=== PATIENT | male | born 2000 | race Caucasian/White ===

== ENCOUNTER 2024-04-29 13:12 | Outpatient (CLI) | payer OTHER, SELFPAY | END 2024-04-29 13:13 | disposition home or self-care (01) | PROVIDERS: Visit Provider Internal Medicine | DX: I45.10 Unspecified right bundle-branch block (principal) | CPT/HCPCS: 80053; 80061 ==

== ENCOUNTER 2024-05-08 12:29 | Outpatient (CLI) | payer OTHER, SELFPAY | END 2024-05-08 12:30 | disposition home or self-care (01) | LOC: RAD 12:32 | PROVIDERS: Visit Provider Internal Medicine | DX: I45.10 Unspecified right bundle-branch block (principal) | CPT/HCPCS: 93306 ==

== ENCOUNTER 2025-03-04 15:44 | Outpatient (CLI) | payer OTHER, SELFPAY ==
--- NOTE | 2025-03-04 16:00 | US_ITS ---
Patient: ROCÍO BISHOP Facility:?[facility] Patient ID:?[id number] Site Patient ID:?[id number]. Site :?[id number] Study:?US-Testicle Scrotum-03/04/2025 4:45:25 PM Ordering Physician:Byron Jesus Final Report: Indication: Testicular pain. Technique: Ultrasound of the scrotum and contents. Sonographic rousseau-scale images were obtained with spectral waveform and color Doppler analysis of the testicles. Comparison: None. Findings: Bother testicles are normal in size and echotexture. No masses. No suspicious calcifications. Arterial and venous color Doppler blood flow and spectral waveforms are present in both testicles. Epididymis: Unremarkable bilaterally. Normal blood flow. Other: No significant hydrocele. Bilateral varicoceles. Preserved flow to the bilateral testes. Bilateral varicoceles. Scrotal wall is normal. Impression: 1. Preserved flow to the bilateral testes. 2. Bilateral varicoceles. Dictated by Kamran Valenzuela MD @ 03/04/2025 8:30:42 PM Signed by:?Kamran Valenzuela MD @03/04/2025 8:30:42 PM (Electronic Signature)
== END 2025-03-04 15:45 | disposition home or self-care (01) ==
LOC: US 15:45
PROVIDERS: PCP Internal Medicine; Visit Provider Physician Assistant Surgical
DX: N50.812 Left testicular pain (principal); I86.1 Scrotal varices
CPT/HCPCS: 76870; 93976

== ENCOUNTER 2025-03-23 08:45 | Outpatient (CLI) | payer OTHER, SELFPAY | END 2025-03-23 08:46 | disposition home or self-care (01) | LOC: NFLDREF 03-29 05:53 | PROVIDERS: PCP Internal Medicine; Referring Provider Internal Medicine; Visit Provider Internal Medicine | DX: Z31.69 Encounter for other general counseling and advice on procreation (principal) | CPT/HCPCS: 89322 ==